=== PATIENT | female | born 1960 | race Caucasian/White ===

== ENCOUNTER 2016-09-21 23:30 | Inpatient (IN) | payer OTHER ==
--- NOTE | ~2016-09-21 | HM ---
Unit #: [id number] #: [id number] Patient: URSULA BHATIA [id number] [address] [address] [id number] I MR#: [id number] NAME: URSULA BHATIA : 1960 SEX: F STUDY DATE/TIME: UNIT: [facility] ROOM: [facility] STUDY DESCRIPTION: Holter Monitor Attending Physician: Mimi Sims M.D. Primary Care Physician: No Primary Care Physician CARDIOLOGY REPORT EXAM Holter Monitor DATE APPLIED 09/22/2016 DATE SCANNED 09/24/[address] Valerio READ BY Dr. Rolf Quevedo REASON FOR TEST Splenic infarct. COMMENTS 1. Underlying rhythm is normal sinus. Sins rate is between 41 at the slowest heart rate and 107 beats as the maximum heart rate. 2. One PVC was noted in 24 hours. 3. There were 15 premature atrial contractions seen in 24 hours. 4. No couplets or supraventricular tachycardia recorded. 5. Patient did not report any symptom or activity diary. IMPRESSION 24 hour ambulatory monitoring is within normal limits. Dictated by... Leslye RiceU/penny TD: 10/02/2016 06:47 JOB #: [id number] Unit #: [id number] #: [id number] Patient: URSULA BHATIA CARDIOLOGY REPORT Page 1 of 1 X Jm Quevedo MD HOLTER MONITOR REPORT
--- NOTE | ~2016-09-21 | CT2 ---
[facility] A Service of [facility] & [facility] RADIOLOGY TEXT RESULTS PATIENT: URSULA BHATIA LOCATION: [facility] 474-01 : [birth year] UNIT #: [id number] AGE: [address]: Inez Valerio MD SEX: F ORDER DR: [id number] [facility] [address] [facility]. [place], [place] [address] [id number] MR#: [id number] Acc #: [id number] NAME: URSULA BHATIA : 1960 SEX: F STUDY DATE/TIME: 09/22/2016 0:42 UNIT: [facility] ROOM: STUDY DESCRIPTION: CT Abd and Pelv W Cont Attending Physician: Gigi Pichardo M.D. Ordering Physician: Gigi Pichardo M.D. Primary Care Physician: Primary Care Physician No MEDICAL IMAGING REPORT This report is preliminary unless electronic signature is present EXAM Abdomen and pelvis CT with contrast, 09/22/2016 INDICATION Epigastric pain and nausea for a week. Left-sided tenderness. TECHNIQUE Contrast-enhanced abdomen and pelvis CT was performed. No comparisons. This CT exam was performed with one or more of the following radiation dose reduction techniques: automatic exposure control, adjustment of mA and/or kV according to patient size, and iterative reconstruction. FINDINGS CT ABDOMEN: Included lung bases demonstrate emphysema and atelectatic change in the lung bases. No pleural or pericardial effusion. Aorta demonstrates no aneurysm or dissection. The spleen is abnormal. There is an infarct involving the lateral aspect of the spleen extending craniocaudal over a distance of about 8.7 cm. There is inflammatory stranding surrounding the spleen and extending to the splenic flexure of the colon and pancreatic tail. There are tiny reactive-appearing lymph nodes in the region of the splenic hilum and adjacent to the pancreatic tail. There is no drainable fluid collection. Adrenal glands are unremarkable. There is no distinct pancreatic mass or inflammatory change of the pancreas. Gallbladder unremarkable. Liver mildly heterogeneous. Too small to characterize low attenuation lesion centrally in the right hepatic lobe measures about 5 mm. This could be best further assessed with nonemergent outpatient with and without contrast MRI or CT if the patient is not a candidate for MRI. Kidneys unremarkable. [facility] A Service of [facility] & [facility] RADIOLOGY TEXT RESULTS PATIENT: URSULA BHATIA LOCATION: [facility] 474-01 : [birth year] UNIT #: [id number] AGE: [address]: Inez Valerio MD SEX: F ORDER DR: CT PELVIS: Bladder unremarkable. No drainable fluid collection in the pelvis or adnexal mass. There is diverticulosis of the colon. No distinct CT evidence of acute diverticulitis. No bowel obstruction. Appendix surgically absent by history. Inguinal canals are unremarkable. There is a tiny right inguinal hernia containing fat. No suspicious bone lesion. IMPRESSION 1. The spleen is abnormal demonstrating a splenic infarct extending over a craniocaudal distance of 8.7 cm, primarily affecting the lateral aspect of the spleen. There is no associated drainable fluid collection or adjacent mass. There are some reactive appearing lymph nodes in the region of the splenic hilum and adjacent to the tail of the pancreas. Secondary inflammatory change extends to the tail of the pancreas and the adjacent splenic flexure of the colon. Etiology for the infarct is unclear. 2. Tiny 5 mm low-attenuation lesion in the right hepatic lobe is indeterminate. There are no comparison studies for this patient to assess chronicity. This could be best further assessed with an outpatient multiphase protocol MRI or CT as described above. Mildly heterogeneous enhancement of the liver noted without evidence of distinct cirrhosis. 3. There is diverticulosis of the colon. 4. Appendix normal. STAT * RESULT Dictated by... Raphael Nazario M.D. THIS IS AN ELECTRONICALLY VERIFIED REPORT Raphael Nazario M.D. at 09/22/2016 3:50 AM Mo TD: 09/22/2016 01:26 JOB #: [id number] MEDICAL IMAGING REPORT Page 1 of 1 COPY
--- NOTE | ~2016-09-21 | DS ---
Unit #: [id number] #: [id number] Patient: AUGUSTO BHATIAH [id number] [address] [place], [place] [address] [id number] I MR#: [id number] NAME: URSULA BHATIA ROOM: [facility] Age: 56 Sex: F Admission Date: 09/22/2016 : 1960 Discharge Date: 09/23/2016 Attending Physician: Mimi Sims M.D. DISCHARGE SUMMARY PRIMARY CARE PROVIDER [facility]. PRINCIPAL DIAGNOSES 1. 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 2. Grade 4 aortic atheroma. 3. Hyperlipidemia with LDL of 173. 4. Tobaccoism. 5. Hypertension. 6. Hypothyroidism. 7. Emphysema. 8. 4-mm pulmonary nodule at the right upper lobe. CONSULTANTS Dr. Lynn, Oncology. PROCEDURES 1. NIMA on 09/23/2016 with an ejection fraction of 60%. No evidence of patent foramen ovale or atrioseptal defect, no clot in the left atrial appendage. No vegetations noted. There is mild mitral regurgitation. At the aortic arch and upper descending thoracic aorta, there is a large grade [address] of the abdomen and pelvis with contrast on 09/22/2016 with a splenic infarct extending approximately 8.7 cm over the craniocaudal distance and reactive lymphadenopathy is also noted. A 5 mm lesion in the right hepatic lobe is indeterminate. Diverticulosis noted. 3. CT angiogram of the chest and abdomen on 09/22/2016 with a large infarct involving 80% of the spleen with residual profusion of a small portion to medial margin of the spleen, occlusion of the splenic artery 7 cm from the splenic hilum with small amount of collateral flow. Other abdominal visceral arteries are widely patent. Jwih-en-ngofegzu bilateral emphysema noted. A 4 mm pulmonary nodule in the right upper lobe. CLINICAL HISTORY AND HOSPITAL COURSE Ms. Troncoso is a nice 56-year-old female, who presented to the emergency department with approximately 1-week history of progressive left flank pain. Please refer to H and P for further details. CT scan of the abdomen and pelvis done in the emergency department revealed a splenic infarct and the patient was subsequently admitted. The patient was initially started on aspirin and Hematology was consulted. Further imaging revealed a rather large splenic infarct with associated occlusion of the splenic artery. Subsequently, NIMA was ordered with Unit #: [id number] #: [id number] Patient: URSULA BHATIA findings of a large atheroma which is the source of the patient's splenic infarct. Treatment would include bridging Lovenox and Coumadin therapy. I discussed this extensively with the patient and she is adamantly refusing bridging Lovenox. She states she does not like shots. She refuses to do them and states her son will not be able to do them either. However, she is willing to take Coumadin and understands that this requires monitoring of blood levels and dietary changes. I have instructed the patient that this may result in further embolism of other organs and/or significant stroke. The patient states she understands the risks, but is willing to "roll the dice." For this reason, I am going to discharge home on Coumadin therapy with close monitoring of INR. I will note, the patient had significant hyperlipidemia with LDL of 173 and will also be placed on statin therapy. She has been counseled extensively regarding tobacco cessation. DISCHARGE CONDITION Stable. DISCHARGE STATUS Discharged to home. DISCHARGE MEDICATIONS Coumadin 5 mg p.o. daily goal INR 2 to 3, lisinopril/hydrochlorothiazide 20/12.5 mg two tablets daily, [place] 10/325 one tablet p.o. q.4 hours p.r.n. for pain number given 55, levothyroxine 75 mcg p.o. daily, atorvastatin 80 mg p.o. daily. DISCHARGE INSTRUCTIONS The patient was instructed to follow a heart healthy and low cholesterol diet. She can increase her activity as tolerated, to refrain from any further tobacco use. I have written excuse from work until 10/05/2016. FOLLOWUP The patient will follow up with Dr. Lynn next week. She will have INR done per [facility] on 09/26/2016 with results faxed to Dr. Lynn. Time spent on discharge 42 minutes. Dictated by... Mimi Sims M.D. NORM/yvette TD: 09/24/2016 00:56 JOB #: [id number] DISCHARGE SUMMARY Page 1 of 1 X Mimi Sims MD DISCHARGE SUMMARY
--- NOTE | ~2016-09-21 | CT15 ---
[facility] A Service of [facility] & [facility] RADIOLOGY TEXT RESULTS PATIENT: URSULA BHATIA LOCATION: [facility] [place] [facility] 474-01 : [birth year] UNIT #: [id number] AGE: [address]: Mimi Sims MD SEX: F ORDER DR: [id number] [facility] [address] [place], [place] [address] [id number] I MR#: [id number] Acc #: [id number] NAME: URSULA BHATIA : 1960 SEX: F STUDY DATE/TIME: 09/22/2016 14:15 UNIT: [facility] [place] [facility] ROOM: [facility] STUDY DESCRIPTION: CT Angio Chest Attending Physician: Mimi Sims M.D. Ordering Physician: Bert Lynn M.D. Primary Care Physician: Primary Care Physician No MEDICAL IMAGING REPORT This report is preliminary unless electronic signature is present EXAM IV contrast-enhanced CT angiogram chest, abdomen and pelvis HISTORY Splenic infarct on CT earlier today. Epigastric pain for 1 week. Left side pain and nausea. FINDINGS IV contrast-enhanced CT angiogram of the chest, abdomen and pelvis was performed with 3-D reconstructions. This CT exam was performed with one or more of the following radiation dose reduction techniques: Automatic exposure control, adjustment of mA and/or kV according to patient size, and iterative reconstruction. CT ANGIOGRAM CHEST: There is vkax-yc-iftkpqnj bilateral emphysema, greater in the upper lobes. Mild bronchiectasis in the right lower lobe. Mild linear atelectasis or scarring in the posterior lower lobes. There is a 4-mm pulmonary nodule in the lateral right upper lobe. If the patient is at low risk, no further workup would be necessary. If the patient is at high risk, followup CT in 12 months would be recommended unless there are older outside CTs to document long-term stability. No airspace consolidation. Incidental persistent left sided SVC. Normal caliber thoracic aorta. Normal caliber pulmonary arteries. No pericardial thickening or effusion. CT ANGIOGRAM ABDOMEN: Normal caliber abdominal aorta. The celiac and superior mesenteric arteries, bilateral renal arteries, and inferior mesenteric artery are widely patent. The splenic artery is occluded approximately 7 cm proximal to the splenic hilum, and there is an infarct of nearly the entire spleen, with preserved perfusion to a small portion of the medial margin of the spleen, presumably through collateral flow. Mild perisplenic stranding. No perisplenic fluid. There is additional minimal stranding in the left paracolic gutter. Incidental focal fatty STS. [facility] A Service of [facility] RADIOLOGY TEXT RESULTS PATIENT: URSULA BHATIA LOCATION: [facility] [place] [facility] 474-01 : [birth year] UNIT #: [id number] AGE: [address]: Mimi Sims MD SEX: F ORDER DR: infiltration of the medial segment left hepatic lobe adjacent to the falciform ligament. No hepatic mass or biliary dilatation. The gallbladder, pancreas, kidneys, and adrenal glands are unremarkable. No bowel dilatation. CT PELVIS: No pelvic mass or fluid collection. The common iliac and internal and external iliac arteries are patent bilaterally with no focal significant stenosis. Moderate sigmoid diverticulosis. Small right inguinal hernia containing fat. The uterus and adnexa are unremarkable. IMPRESSION 1. Large infarct involving close to 80% of the spleen, with residual perfusion of a small portion of the medial margin of the spleen. There is occlusion of the splenic artery approximately 7 cm from the splenic hilum, with small amount of collateral flow supplying a portion of the medial margin of the spleen. 2. The remainder of the abdominal visceral arteries appear widely patent. 3. No acute findings on the remainder of the study. 4. Ottl-oo-seebnahg bilateral emphysema, greater in the upper lobes. 5. Incidental persistent left sided SVC. 6. Small right inguinal hernia containing fat. 7. 4 mm pulmonary nodule in the lateral right upper lobe. If the patient is at low risk, no additional followup would be recommended. If the patient is at high risk, followup chest CT in 12 months could be performed unless older outside CTs are available to document long-term stability. Dictated by... Jhonny Betancourt M.D. THIS IS AN ELECTRONICALLY VERIFIED REPORT Jhonny Betancourt M.D. at 09/23/2016 2:42 PM DFL/psc TD: 09/22/2016 23:34 JOB #: [id number] MEDICAL IMAGING REPORT Page 1 of 1 COPY
--- NOTE | ~2016-09-21 | CT14 ---
[facility] A Service of [facility] & [facility] RADIOLOGY TEXT RESULTS PATIENT: URSULA BHATIA LOCATION: [facility] 474-01 : [birth year] UNIT #: [id number] AGE: [address]: Mimi Sims MD SEX: F ORDER DR: [id number] [facility] [address] [place], [place] [address] [id number] I MR#: [id number] Acc #: [id number] NAME: URSULA BHATIA : 1960 SEX: F STUDY DATE/TIME: 09/22/2016 14:15 UNIT: [facility] ROOM: [facility] STUDY DESCRIPTION: CT Angio Abdomen and Pelvis Attending Physician: Mimi Sims M.D. Ordering Physician: Bret Lynn M.D. Primary Care Physician: Primary Care Physician No MEDICAL IMAGING REPORT This report is preliminary unless electronic signature is present EXAM CT angio abdomen and pelvis, 09/22/2016 HISTORY Splenic infarct on CT earlier today. Epigastric pain for 1 week. Left side pain and nausea. FINDINGS Please see CT ANGIO CHEST report for combined text results. Dictated by... Jhonny Betancourt M.D. THIS IS AN ELECTRONICALLY VERIFIED REPORT Jhonny Betancourt M.D. at 09/23/2016 2:44 PM DFL/psc TD: 09/22/2016 23:44 JOB #: [id number] MEDICAL IMAGING REPORT Page 1 of 1 COPY
--- NOTE | ~2016-09-21 | HP ---
Unit #: [id number] #: [id number] Patient: AUGUSTO BHATIAH [id number] [address] [place], [place] [address] [id number] I MR#: [id number] NAME: URSULA BHATIA ROOM: [facility] Age: 56 Sex: F Admission Date: 09/22/2016 : 1960 Attending Physician: Inez Valerio M.D. Primary Care Physician: No Primary Care Physician HISTORY AND PHYSICAL CHIEF COMPLAINT Splenic infarct. HISTORY This pleasant 56-year-old female with hypertension, hypothyroidism, is admitted for left upper quadrant pain. The patient was in her usual state of health until one week prior to admission when she began to experience postprandial epigastric pain which then radiated to her left upper quadrant into the back. Because eating made the pain worse, she decreased her p.o. intake, began to feel lightheaded and weak. Denies urinary symptoms with the above. She presents to this emergency department where she is tender in the left upper quadrant. A CT scan was performed showing a splenic infarct measuring about 8.7 cm. This is without drainable fluid or mass. Some reactive appearing lymph nodes also noted. In the ER, she was bolused with a liter of saline, given Zofran, 30 mg of Toradol and 40 mg of IV Protonix. No history of blood clots in the past. Family history of blood clots. Denies true palpitations with the above. EKG only shows sinus bradycardia. PAST MEDICAL HISTORY 1. Hypertension. 2. Hypothyroidism. 3. T and A. 4. Ectopic requiring removal of fallopian tube. ALLERGIES No known drug allergies. HOME MEDICATIONS 1. Zestoretic 20/12.5, two tablets daily. 2. Synthroid 0.175 mg daily. FAMILY HISTORY Hypertension. SOCIAL HISTORY The patient lives with her son. Smokes about one pack per day. Drinks occasional alcohol. REVIEW OF SYSTEMS Notable for left sided abdominal discomfort, feeling somewhat hot and cold, lightheaded, hypertension, hypothyroidism, above mentioned Unit #: [id number] #: [id number] Patient: URSULA BHATIA surgeries. All other systems were reviewed and are otherwise negative. PHYSICAL EXAMINATION GENERAL APPEARANCE: Pleasant, moderately obese 56-year-old female, currently in no acute distress. VITAL SIGNS: Temperature 97.9, pulse 71, respirations 18, blood pressure 125/80. O2 saturation 100% on room air. HEENT: Eyes PERRLA. Extraocular muscles are intact. Pharynx benign with somewhat poor dentition. NECK: Supple without adenopathy or thyromegaly. CHEST: Fairly clear. CARDIAC: Normal S1 and S2 without S3, S4 or murmur. ABDOMEN: Bowel sounds are present. The patient is most tender in the left upper quadrant but without rebound, guarding. No definite hepatosplenomegaly or masses. EXTREMITIES: Without clubbing, cyanosis or edema. Pedal pulses are present. NEUROLOGIC EXAM: The patient is awake, alert, oriented. Cranial nerves are intact. Equal strength throughout. DIAGNOSTIC STUDIES LABORATORY: Admission labs - hematocrit is 44.8, white blood count is 14.7, normal platelet count. Negative cardiac markers. Normal coags. SMA-12 - potassium is 3.3, chloride is 93, alkaline phos. 127, normal lipase. H. pylori is negative. Urinalysis - 2+ leukocyte esterase with 25 to 50 white cells, 2+ bacteria. IMAGING: CT scan of the abdomen and pelvis - 8.7 cm splenic infarct. Reactive appearing lymph nodes in the region of the splenic hilum and adjacent to the tail of the pancreas. Secondary inflammatory changes extend to the tail of the pancreas and adjacent splenic flexure of the colon. 5 mm low attenuation lesion in the right hepatic lobe which is indeterminate. Mildly heterogeneous enhancement of the liver without evidence of distinct cirrhosis. Diverticular disease. CARDIOVASCULAR: EKG - sinus bradycardia, rate 53. Normal appearing otherwise. ASSESSMENT 1. Splenic infarct of uncertain etiology: No trauma involved. 2. Hypertension. 3. Hypothyroidism. PLANS 1. Obtain echo and Holter monitor. 2. Hypercoagulable workup and check LVH. 3. Hematology consultation. 4. Start aspirin, patient may need anticoagulation depending on above. 5. SCDs for DVT prophylaxis. 6. Pain control. Unit #: [id number] #: [id number] Patient: URSULA BHATIA Dictated by Inez Valerio M.D. AML/df TD: 09/22/2016 05:45 JOB #: [id number] HISTORY AND PHYSICAL Page 1 of 1 X Inez Valerio MD HISTORY AND PHYSICAL
--- NOTE | ~2016-09-21 | HP ---
Unit #: [id number] #: [id number] Patient: URSULA BHATIA [id number] [address] [address] [id number] I MR#: [id number] NAME: URSULA BHATIA ROOM: [facility] Age: 56 Sex: F Admission Date: 09/22/2016 : 1960 Attending Physician: Inez Valerio M.D. Primary Care Physician: No Primary Care Physician HISTORY AND PHYSICAL ADDENDUM The patient does have significant pyuria although she is asymptomatic. However, I will start Rocephin pending urine C and S. Dictated by Inez Valerio M.D. AML/df TD: 09/22/2016 07:02 JOB #: [id number] HISTORY AND PHYSICAL Page 1 of 1 X Inez Valerio MD X HISTORY AND PHYSICAL
--- NOTE | ~2016-09-21 | DS ---
Unit #: [id number] #: [id number] Patient: URSULA BHATIA [id number] [address] [address] [id number] I MR#: [id number] NAME: URSULA BHATIA ROOM: [facility] Age: 56 Sex: F Admission Date: 09/22/2016 : 1960 Discharge Date: 09/23/2016 Attending Physician: Mimi Sims M.D. DISCHARGE SUMMARY JOB NOTE: ADDENDUM ADDENDUM I returned to the patient's room to discuss with her the option of placing her on a heparin drip. Given I am uncomfortable sending her home on Coumadin only. After further discussion, the patient indicates that she is agreeable to taking Lovenox. She simply feels uncomfortable giving herself the shots. I will continue to work with home health and hopefully her son will give her the shots and plan to discharge her home today on Lovenox 1 mg/kg subcutaneously q.12 hours to stop after INR is greater than or equal to 2. Dictated by... Mimi Sims M.D. NORM/yvette TD: 09/24/2016 01:20 JOB #: [id number] DISCHARGE SUMMARY Page 1 of 1 X Mimi Sims MD X DISCHARGE SUMMARY
--- NOTE | ~2016-09-21 | CO ---
Unit #: [id number] #: [id number] Patient: URSULA BHATIA [id number] [address] [address] [id number] MR#: [id number] NAME: URSULA BHATIA ROOM: [facility] Age: 56 Sex: F Admission Date: 09/22/2016 : 1960 Attending Physician: Mimi Sims M.D. Primary Care Physician: No Primary Care Physician Requesting Physician: Inez Valerio M.D. Consultation Date: 09/22/2016 CONSULTATION REPORT REASON FOR CONSULTATION Splenic infarct, please evaluate for hypocoagulable state. HISTORY OF PRESENT ILLNESS Ms. Ursula Bhatia has a history of hypertension, hypothyroidism, who presented to the emergency room complaining of severe pain in the left upper quadrant. Because of pain, she ate poorly, was lightheaded and weak. 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 Ms. Bhatia tells me that in the past three months she had two episodes again with nausea, vomiting, with much less abdominal pain. This episode is accompanied by more abdominal pain rather than nausea and vomiting. She has had no family history or personal history of blood clots in the past. PAST HISTORY 1. History of hypertension. 2. Hypothyroidism. ALLERGIES No known medical allergies. PAST SURGICAL HISTORY Ectopic . ALLERGIES She has no known medication allergies. MEDICATIONS Medications at time of admission were Zestoretic and Synthroid. FAMILY HISTORY Negative for blood clots. History of hypertension. SOCIAL HISTORY Smokes a pack a day. Rarely drinks any alcohol. She is single and lives with her son. REVIEW OF SYSTEMS 14-point review of systems taken. CONSTITUTIONAL: No recent change in appetite or weight. Fatigue. EYES: Negative. EARS/NOSE/MOUTH/THROAT: Negative. CARDIOVASCULAR: Negative. RESPIRATORY: Pleuritic chest pain every time she takes a deep breath. Unit #: [id number] #: [id number] Patient: URSULA BHATIA GASTROINTESTINAL: As discussed. GENITOURINARY: No recent change in bowel habits. GENITOURINARY: Negative. NEUROLOGIC: Negative. ALLERGIC/LYMPHATIC: Negative. SKIN: Negative. PSYCHIATRIC: Negative. PHYSICAL EXAMINATION GENERAL: On examination, she is a pleasant, middle aged woman. Performance is a 1. She is awake, alert, oriented x3. VITAL SIGNS: Temperature 97.6, pulse rate is 55, respiratory rate is 18, blood pressure 123/71. O2 sats 97% on room air. HEAD EXAMINATION; Shows pupils equal, react well to light. No pallor is icterus. Mucous membranes are moist. NECK: No adenopathy, JVD or thyromegaly. CARDIOVASCULAR SYSTEM: First and second heart sounds are heard, regular. No murmurs, gallops, rubs. LUNGS: Chest expansion was symmetric. Bilaterally clear with normal breath sounds. ABDOMEN: Soft, nontender. Bowel sounds active. Tenderness in the left upper quadrant without palpable mass. EXTREMITIES: Warm with good pulses. No edema, cyanosis or clubbing. NEUROLOGICAL EXAMINATION: She is awake, alert, oriented x3 without any focal findings. PSYCHIATRIC: Normal affect. SKIN: Negative. LYMPHATIC: Negative. DIAGNOSTIC STUDIES LABORATORY: White count 14.7, hemoglobin 14.9, platelet count is 350,000. Complete metabolic panel shows potassium of 3.3, BUN is 16, creatinine is 0.9. Alkaline phosphatase 127. Helicobacter screen is negative. Protime is 10, INR of 1, PTT 26.1. 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 ASSESSMENT AND PLAN Ms. Bhatia is 56 years old with a history of hypertension, hypothyroidism, and a history of smoking admitted with a large splenic infarct. A hypocoagulable state is possible but not very likely given this is an arterial thrombosis embolism. I discussed with Ms. Bhatia. Will get a CT angiogram of the chest to evaluate the arch and descending aorta as well as CT angiogram of the abdomen and pelvis to evaluate abdominal aorta and vasculature. She has already had a hypocoagulable workup, the results of which are pending at this point and are awaited in the next few days. I also recommended cardiology consultation with a transesophageal echocardiogram to evaluate for cardiogenic source of emboli. Plans were discussed in detail. Thanks for allowing me to participate in her care. Unit #: [id number] #: [id number] Patient: URSULA BHATIA Dictated by... Leslye Bean/penny TD: 09/23/2016 13:11 JOB #: [id number] CONSULTATION REPORT Page 1 of 1 X Bret Lynn MD X CONSULTATION REPORT
[2016-09-21 23:23] LABS: BASOPHIL# 0.1 X10e3 (0-0.3); BASOPHIL% 0.8 % (0-2.5); EOSINOPHIL# 0.1 X10e3 (0-0.7); EOSINOPHIL% 0.7 % (0.0-7.0); HEMATOCRIT 44.8 % (35.0-45.0); HEMOGLOBIN 14.9 gm/dL (12.0-16.0); LYMPHOCYTE# 2.8 X10e3 (1.0-3.5); LYMPHOCYTE% 18.8 % (17.0-45.0); MEAN CELL VOLUME 91.2 FL (83-96); MEAN CORPUSCULAR HEMOGLOBIN 30.4 PG (28-34); MEAN CORPUSCULAR HGB CONC 33.3 g/dL (30-36); MEAN PLATELET VOLUME 8.2 FL (6.5-11.5); MONOCYTE# 1.4 X10e3 (0-1.0); MONOCYTE% 9.4 % (3.0-12.0); NEUTROPHIL# 10.3 X10e3 (1.5-7.1); NEUTROPHIL% 70.3 % (40-75); PLATELET COUNT 350 X10e3 (140-420); RED BLOOD COUNT 4.91 X10e (3.90-5.30); RED CELL DISTRIBUTION WIDTH 13.7 % (11.0-15.5); WHITE BLOOD COUNT 14.7 X10e3 (4.0-10.5)
[2016-09-21 23:26] LABS: DIFF IND NO
[2016-09-21 23:43] LABS: POC - CKMB 1.8 ng/mL (0.0-7.9); POC - TROPONIN <0.05 ng/mL (<=0.05)
[2016-09-21 23:53] LABS: BILIRUBIN, DIRECT 0.2 mg/dL (0.0-0.2); BILIRUBIN,INDIRECT 0.6 mg/dL (0.0-0.9); BILIRUBIN,TOTAL 0.8 mg/dL (0.2-2.0); BUN/CREATININE RATIO 17.77; CALCIUM SERUM 9.4 mg/dL (8.4-10.2); CREATININE SERUM 0.9 mg/dL (0.6-1.4); GLOM FILT RATE Estimated 71.5 mL/min (>60); POTASSIUM 3.3 mmol/L (3.5-5.1); PROTEIN TOTAL SERUM 8.2 g/dL (6.0-8.3)
[2016-09-21 23:54] LABS: URINE SOURCE CLEAN CATCH
[2016-09-22 00:07] LABS: URINE APPEARANCE CLOUDY; URINE BILIRUBIN NEG (NEG); URINE BLOOD TRACE (NEG); URINE COLOR DK YELLOW; URINE GLUCOSE NEG (NEG); URINE KETONE TRACE (NEG); URINE LEUKOCYTE ESTERASE 2+ (NEG); URINE NITRATE NEG (NEG); URINE PH 5.5 (5-8); URINE PROTEIN TRACE (NEG); URINE SPECIFIC GRAVITY 1.024 (1.003-1.035)
[2016-09-22 00:10] LABS: CULTURE INDICATED? YES; URINE BACTERIA AUWI 2+ (NEGATIVE); URINE SQUAMOUS EPITHELIAL CELL FEW /[HPF]; UWBCS1 AUWI 25-50 (0-5)
[2016-09-22 01:53] LABS: PARTIAL THROMBOPLASTIN TIME 26.1 SECONDS (23.5-31.3)
[2016-09-22 02:53] LABS: POC - CKMB 1.2 ng/mL (0.0-7.9); POC - TROPONIN <0.05 ng/mL (<=0.05)
[2016-09-22 04:23] LABS: PROTEIN TOTAL SERUM 6.2 g/dL (6.0-8.3)
[2016-09-22] MEDS ORDERED: SYNTHROID75 MCG PO (04:24)
[2016-09-22] MEDS ORDERED: SYNTHROID0.1 MG PO (04:25)
[2016-09-22] MEDS ORDERED: LISINOPRIL-HCTZ1 T14 PO (04:27)
[2016-09-23 04:34] LABS: HEMOGLOBIN 13.9 gm/dL (12.0-16.0); MEAN CELL VOLUME 93.3 FL (83-96); MEAN CORPUSCULAR HEMOGLOBIN 30.1 PG (28-34); MEAN CORPUSCULAR HGB CONC 32.2 g/dL (30-36); MEAN PLATELET VOLUME 8.3 FL (6.5-11.5); RED BLOOD COUNT 4.6 X10e (3.90-5.30); RED CELL DISTRIBUTION WIDTH 14.3 % (11.0-15.5); WHITE BLOOD COUNT 11.8 X10e3 (4.0-10.5)
[2016-09-23 09:39] LABS: CALCIUM SERUM 8.7 mg/dL (8.4-10.2); CREATININE SERUM 1.1 mg/dL (0.6-1.4); GLOM FILT RATE Estimated 56.1 mL/min (>60); POTASSIUM 3.7 mmol/L (3.5-5.1)
[2016-09-23] MEDS ORDERED: LOVENOX100 MG/ML SUBQ (17:07)
[2016-09-23] MEDS ORDERED: NORCO1 TAB 10/3 (17:07)
[2016-09-23] MEDS ORDERED: ATORVASTATIN CA80 MG PO (17:10)
[2016-09-23] MEDS ORDERED: COUMADIN5 MG PO (17:12)
[2016-09-27 20:51] LABS: CARDIOLIPIN IGG (LUPUS) <14 GPL (<=14); CARDIOLIPIN IGM (LUPUS) <12 MPL (<=12); DRVVT MIX INTERP (LUPUS) Not Indicated (()); INR LUPUS 1.1 (()); PROTROMBIN TIME LUPUS 11.3 sec (9.0-11.5); PT (LA MIX STUDY) 11.3 sec (<=11.5); PTT-LA 37 sec (<=40); PTT-LA SCREEN (LUPUS) 37 sec (<=40); THROMBIN TIME LUPUS 18 sec (13-19); dRVVT SCREEN (LUPUS) 40 sec (<=45)
== END 2016-09-23 18:35 | disposition home health service (06) | DRG 816 ==
LOC: CED 23:30 → CEDOF 09-22 02:37 → C4C 09-22 03:12
PROVIDERS: Emergency Medicine; Internal Medicine; Internal Medicine Cardiovascular Disease
PROC: B32TYZZ Computerized Tomography (CT Scan) of Left Pulmonary Artery using Other Contrast (ICD-10-PCS; 2016-09-22)
PROC: B32SYZZ Computerized Tomography (CT Scan) of Right Pulmonary Artery using Other Contrast (ICD-10-PCS; 2016-09-22)
PROC: B420YZZ Computerized Tomography (CT Scan) of Abdominal Aorta using Other Contrast (ICD-10-PCS; 2016-09-22)
PROC: B42HYZZ Computerized Tomography (CT Scan) of Bilateral Lower Extremity Arteries using Other Contrast (ICD-10-PCS; 2016-09-22)
PROC: B42CYZZ Computerized Tomography (CT Scan) of Pelvic Arteries using Other Contrast (ICD-10-PCS; 2016-09-22)
PROC: B421YZZ Computerized Tomography (CT Scan) of Celiac Artery using Other Contrast (ICD-10-PCS; 2016-09-22)
PROC: B424YZZ Computerized Tomography (CT Scan) of Superior Mesenteric Artery using Other Contrast (ICD-10-PCS; 2016-09-22)
PROC: B24BZZ4 Ultrasonography of Heart with Aorta, Transesophageal (ICD-10-PCS; principal; 2016-09-23)
DX: D73.5 Infarction of spleen (principal); I10 Essential (primary) hypertension; E03.9 Hypothyroidism, unspecified; F17.210 Nicotine dependence, cigarettes, uncomplicated; I34.0 Nonrheumatic mitral (valve) insufficiency; I70.0 Atherosclerosis of aorta; E78.5 Hyperlipidemia, unspecified; R91.1 Solitary pulmonary nodule; J43.9 Emphysema, unspecified
CPT/HCPCS: 36415; 71275; 74174; 74177; 80048; 80061; 80076; 81003; 81240; 81241; 82553; 83615; 83690; 84155; 84443; 84484; 85025; 85027; 85303; 85306; 85610; 85613; 85670; 85730; 86147; 86677; 87086; 93005; 93225; 93226; 93312; 96361; 96374; 96375; 99285; C9113; J0696; J1650; J1885; J2250; J2270; J2405; J3010; Q9967